=== PATIENT | male | born 1960 | race American Indian/Alaskan Native ===

== ENCOUNTER 2018-06-22 13:46 | Inpatient (IN) | payer MEDICAID, OTHER ==
[2018-06-22 13:46] VITALS: BMI 31.1
[2018-06-22 15:58] LABS: BASO # 0.1 K/uL (0.0-0.2); BASO % 0.8 % (0.0-2.0); EOS % 0.1 % (0.0-4.0); LYMPH # 2.4 K/uL (1.0-4.3); LYMPH % 12.2 % (20.0-40.0); MEAN CORPUSCULAR HEMOGLOBIN 29.8 pg (27.0-31.0); MEAN CORPUSCULAR HGB CONC 32.7 g/dL (33.0-37.0); MEAN PLATELET VOLUME 7.7 fL (7.2-11.7); MONO # 1.1 K/uL (0.0-0.8); MONO % 5.5 % (0.0-10.0); NEUT # 15.9 K/uL (1.8-7.0); NEUT % 81.4 % (50.0-75.0); RBC 5.59 Mil/uL (4.40-5.90); RED CELL DISTRIBUTION WIDTH 13.9 % (11.5-14.5)
[2018-06-22 16:01] LABS: HEMOGLOBIN 16.6 g/dL (12.0-18.0); WHITE BLOOD COUNT 19.5 K/uL (4.8-10.8)
[2018-06-22 16:02] LABS: SQUAMOUS EPITHIAL 2 /hpf (0-5); URINE BILIRUBIN NEGATIVE (NEGATIVE); URINE BLOOD 2+ (NEGATIVE); URINE CLARITY Hazy (Clear); URINE COLOR Yellow (YELLOW); URINE GLUCOSE (UA) NORMAL (Normal); URINE LEUKOCYTE ESTERASE NEG Leu/uL (Negative); URINE PROTEIN 2+ mg/dL (NEGATIVE); URINE UROBILINOGEN NORMAL mg/dL (0.2-1.0)
[2018-06-22 16:04] LABS: ALB/GLOB RATIO 1.4 (1.0-2.1); ALBUMIN 5.2 g/dL (3.5-5.0); AST/SGOT 34 U/L (17-59); BLOOD UREA NITROGEN 64 mg/dL (9-20); CALCIUM 8.6 mg/dl (8.6-10.4); GFR NON-AFRICAN AMERICAN 8
[2018-06-22 16:09] LABS: ALT/SGPT < 6 U/L (21-72)
[2018-06-22 16:17] LABS: BARBITURATES, UR NEGATIVE (NEGATIVE); BENZODIAZEPINES, UR NEGATIVE (NEGATIVE); OPIATES, UR POSITIVE (NEGATIVE); PHENCYCLIDINE, UR NEGATIVE (NEGATIVE)
--- NOTE | 2018-06-22 16:19 | C.PDOC ---
History Of Present Illness 57 year old male presents to ED requesting pre-screen for heroin detox. Patient states that he last used yesterday. He states that he uses 4-5 bags daily and intranasally. He states that he uses 2 bags 3 hours ago. Patient denies wit hdrawal symptoms. Time Seen by Provider: 06/22/18 15:07 Chief Complaint (Nursing): Substance Abuse History Per: Patient History/Exam Limitations: no limitations Onset/Duration Of Symptoms: Hrs Modifying Factor(s): Other (heroin) Associated Symptoms: denies: Other (withdrawl symptoms) Past Medical History Reviewed: Historical Data, Nursing Documentation, Vital Signs Vital Signs: Last Vital Signs Temp 98 F 06/22/18 13:54 Pulse 95 H 06/22/18 13:54 Resp 18 06/22/18 13:54 BP 164/110 H 06/22/18 13:54 Pulse Ox 100 06/22/18 13:54 - Medical History PMH: Anxiety, Deep Vein Thrombosis Denies: Diabetes, Hepatitis, HIV, HTN, Chronic Kidney Disease, Seizures, Sexually Transmitted Disease Surgical History: No Surg Hx - [facility] Procedures DETOXIFICATION SERVICES FOR SUBSTANCE ABUSE TREATMENT (04/16/16) INJECT/INFUSE ELECTROLYT (06/21/13) INJECT/INFUSE NEC (06/21/13) Family History: States: Unknown Family Hx - Social History Hx Tobacco Use: Yes (heavy smoker) Hx Alcohol Use: Yes (social) Hx Substance Use: Yes (heroin) - Immunization History Hx Tetanus Toxoid Vaccination: No Hx Influenza Vaccination: No Hx Pneumococcal Vaccination: No Review Of Systems Constitutional: Negative for: Fever, Chills, Weakness Cardiovascular: Negative for: Chest Pain, Palpitations Respiratory: Negative for: Cough, Shortness of Breath Gastrointestinal: Negative for: Nausea, Vomiting, Abdominal Pain Neurological: Negative for: Weakness, Numbness, Dizziness Psych: Negative for: Withdrawal Physical Exam - Physical Exam Appears: Well, Non-toxic, No Acute Distress, Other (pleasant) Skin: Normal Color, Warm, Dry Head: Atraumatic, Normacephalic Eye(s): bilateral: Other (pinpoint pupils) Oral Mucosa: Moist Neck: Normal ROM, Supple Chest: Symmetrical, No Deformity Respiratory: No Accessory Muscle Use Gastrointestinal/Abdominal: Soft, No Tenderness Extremity: Capillary Refill (< 2 seconds) Extremity: Bilateral: Atraumatic, Normal Color And Temperature Neurological/Psych: Oriented x3, Normal Speech, Normal Cognition ED Course And Treatment - Laboratory Results Result Diagrams: 06/22/18 17:56 06/22/18 18:41 Lab Results: Total Bilirubin 0.4 mg/dL (0.2-1.3) 06/22/18 15:43 AST 34 U/L (17-59) 06/22/18 15:43 ALT < 6 U/L (21-72) L D 06/22/18 15:43 Alkaline Phosphatase 98 U/L (38-126) 06/22/18 15:43 Total Protein 9.0 g/dL (6.3-8.3) H 06/22/18 15:43 Albumin 5.2 g/dL (3.5-5.0) H 06/22/18 15:43 Globulin 3.8 gm/dL (2.2-3.9) 06/22/18 15:43 Albumin/Globulin Ratio 1.4 (1.0-2.1) 06/22/18 15:43 Urine Color Yellow (YELLOW) 06/22/18 15:43 Urine Clarity Hazy (Clear) 06/22/18 15:43 Urine pH 5.0 (5.0-8.0) 06/22/18 15:43 Ur Specific [place] 1.015 (1.003-1.030) 06/22/18 15:43 Urine Protein 2+ mg/dL (NEGATIVE) H 06/22/18 15:43 Urine Glucose (UA) Normal mg/dL (Normal) 06/22/18 15:43 Urine Ketones Negative mg/dL (NEGATIVE) 06/22/18 15:43 Urine Blood 2+ (NEGATIVE) H 06/22/18 15:43 Urine Nitrate Negative (NEGATIVE) 06/22/18 15:43 Urine Bilirubin Negative (NEGATIVE) 06/22/18 15:43 Urine Urobilinogen Normal mg/dL (0.2-1.0) 06/22/18 15:43 Ur Leukocyte Esterase Neg Donna/uL (Negative) 06/22/18 15:43 Urine WBC (Auto) 3 /hpf (0-5) 06/22/18 15:43 Urine RBC (Auto) 16 /hpf (0-3) H 06/22/18 15:43 Ur Squamous Epith Cells 2 /hpf (0-5) 06/22/18 15:43 Hyaline Casts 11-20 /lpf (0-2) H 06/22/18 15:43 ECG: Interpreted By Me ECG Rhythm: Sinus Rhythm ECG Interpretation: Normal Rate From EC O2 Sat by Pulse Oximetry: 100 (RA) Pulse Ox Interpretation: Normal - Radiology CXR: Interpreted by Me CXR Interpretation: Yes: No Acute Disease Progress Note: Labs ordered with UA and drug screen for patient. Reevaluation Time: 16:19 Reassessment Condition: Unchanged Medical Decision Making Medical Decision Makin: leukocytosis prob related to cocaine BUN 64/7.2 vastly abnormal c/p prior hydration started and repeat CBC/CMP repeat labs creat 6.7, slightly improved. 1930: d/w Dr. Berger, Medicine Awake Overnight Monitor- ok to admit recommends Nephrology Consult, Dr. Salter Awake Overnight Monitor agressive hydration continued, presume pre-renal vs heroine induced nephropathy Disposition Doctor Will See Patient In The: Hospital Counseled Patient/Family Regarding: Studies Performed, Diagnosis - Disposition Disposition: HOSPITALIZED Disposition Time: 19:15 Condition: GOOD - Clinical Impression Clinical Impression: Drug abuse, Acute renal insufficiency - Scribe Statement The provider has reviewed the documentation as recorded by the Scribe (Carito Gongora) All medical record entries made by the Scribe were at my direction and p ersonally dictated by me. I have reviewed the chart and agree that the record accurately reflects my personal performance of the history, physical exam, medical decision making, and the department course for this patient. I have also personally directed, reviewed, and agree with the discharge instructions and disposition.
--- NOTE | 2018-06-22 16:20 | C.PDOC ---
Time Seen by Provider: 06/22/18 15:07 Chief Complaint (Nursing): Substance Abuse Past Medical History Vital Signs: Last Vital Signs Temp 98 F 06/22/18 13:54 Pulse 95 H 06/22/18 13:54 Resp 18 06/22/18 13:54 BP 164/110 H 06/22/18 13:54 Pulse Ox 100 06/22/18 13:54 - Medical History PMH: Anxiety, Deep Vein Thrombosis Denies: Diabetes, Hepatitis, HIV, HTN, Chronic Kidney Disease, Seizures, Sexually Transmitted Disease - [facility] Procedures DETOXIFICATION SERVICES FOR SUBSTANCE ABUSE TREATMENT (04/16/16) INJECT/INFUSE ELECTROLYT (06/21/13) INJECT/INFUSE NEC (06/21/13) - Social History Hx Tobacco Use: Yes (heavy smoker) Hx Alcohol Use: Yes (social) Hx Substance Use: Yes (heroin) - Immunization History Hx Tetanus Toxoid Vaccination: No Hx Influenza Vaccination: No Hx Pneumococcal Vaccination: No ED Course And Treatment - Laboratory Results Result Diagrams: 06/22/18 17:56 06/22/18 18:41 Lab Results: Total Bilirubin 0.4 mg/dL (0.2-1.3) 06/22/18 15:43 AST 34 U/L (17-59) 06/22/18 15:43 ALT < 6 U/L (21-72) L D 06/22/18 15:43 Alkaline Phosphatase 98 U/L (38-126) 06/22/18 15:43 Total Protein 9.0 g/dL (6.3-8.3) H 06/22/18 15:43 Albumin 5.2 g/dL (3.5-5.0) H 06/22/18 15:43 Globulin 3.8 gm/dL (2.2-3.9) 06/22/18 15:43 Albumin/Globulin Ratio 1.4 (1.0-2.1) 06/22/18 15:43 Urine Color Yellow (YELLOW) 06/22/18 15:43 Urine Clarity Hazy (Clear) 06/22/18 15:43 Urine pH 5.0 (5.0-8.0) 06/22/18 15:43 Ur Specific [place] 1.015 (1.003-1.030) 06/22/18 15:43 Urine Protein 2+ mg/dL (NEGATIVE) H 06/22/18 15:43 Urine Glucose (UA) Normal mg/dL (Normal) 06/22/18 15:43 Urine Ketones Negative mg/dL (NEGATIVE) 06/22/18 15:43 Urine Blood 2+ (NEGATIVE) H 06/22/18 15:43 Urine Nitrate Negative (NEGATIVE) 06/22/18 15:43 Urine Bilirubin Negative (NEGATIVE) 06/22/18 15:43 Urine Urobilinogen Normal mg/dL (0.2-1.0) 06/22/18 15:43 Ur Leukocyte Esterase Neg Donna/uL (Negative) 06/22/18 15:43 Urine WBC (Auto) 3 /hpf (0-5) 06/22/18 15:43 Urine RBC (Auto) 16 /hpf (0-3) H 06/22/18 15:43 Ur Squamous Epith Cells 2 /hpf (0-5) 06/22/18 15:43 Hyaline Casts 11-20 /lpf (0-2) H 06/22/18 15:43 Lab Interpretation: Abnormal (tox + opiates/cocaine) O2 Sat by Pulse Oximetry: 100 Reevaluation Time: 16:19 Reassessment Condition: Unchanged Medical Decision Making Medical Decision Makin: leukocytosis prob related to cocaine BUN 64/7.2 vastly abnormal c/p prior hydration started and repeat CBC/CMP repeat labs creat 6.7, slightly improved. 1930: d/w Dr. Berger, Medicine Sr[employer]- ok to admit recommends Nephrology Consult, Dr. Salter Sr[employer] agressive hydration continued, presume pre-renal vs heroine induced nephropathy Disposition Doctor Will See Patient In The: Hospital Counseled Patient/Family Regarding: Studies Performed, Diagnosis - Disposition Disposition: HOSPITALIZED Disposition Time: 19:41 Condition: GOOD - Clinical Impression Clinical Impression: Drug abuse, Acute renal insufficiency
[2018-06-22 18:00] LABS: BASO # 0.1 K/uL (0.0-0.2); BASO % 0.7 % (0.0-2.0); MONO # 1.6 K/uL (0.0-0.8); NEUT % 80.4 % (50.0-75.0)
[2018-06-22 18:11] LABS: EOS % 0.1 % (0.0-4.0); HEMOGLOBIN 16.8 g/dL (12.0-18.0); LYMPH # 2.2 K/uL (1.0-4.3); LYMPH % 10.9 % (20.0-40.0); MEAN CELL VOLUME 90.2 fL (80.0-94.0); MEAN CORPUSCULAR HEMOGLOBIN 30.1 pg (27.0-31.0); MEAN CORPUSCULAR HGB CONC 33.3 g/dL (33.0-37.0); MEAN PLATELET VOLUME 7.6 fL (7.2-11.7); MONO % 7.9 % (0.0-10.0); NEUT # 16.4 K/uL (1.8-7.0); RBC 5.58 Mil/uL (4.40-5.90); RED CELL DISTRIBUTION WIDTH 13.9 % (11.5-14.5); WHITE BLOOD COUNT 20.4 K/uL (4.8-10.8)
[2018-06-22 19:10] LABS: ALB/GLOB RATIO 1.4 (1.0-2.1); ALBUMIN 5.2 g/dL (3.5-5.0); CALCIUM 8.8 mg/dl (8.6-10.4)
[2018-06-22] MEDS ORDERED: Sodium Chloride 0.9% 1,000 ML IV ONE ×2 (19:17)
[2018-06-22 19:21] LABS: CK-MB 6.34 ng/mL (0.0-3.38); TROPONIN I 0.098 ng/mL (0.00-0.120)
[2018-06-22] MEDS ORDERED: Sodium Chloride 0.9% 2,000 ML ONE (19:33)
[2018-06-22 20:30] VITALS: RESP 20
--- NOTE | 2018-06-23 08:28 | RAD ---
Date of service: 06/22/2018 HISTORY: adm COMPARISON: No prior. FINDINGS: LUNGS: The lungs are well inflated and clear. PLEURA: No pleural effusions or pneumothorax. CARDIOVASCULAR: The heart is normal in size. No aortic atherosclerotic calcifications present. OSSEOUS STRUCTURES: Within normal limits for the patient's age. VISUALIZED UPPER ABDOMEN: Normal. OTHER FINDINGS: None. IMPRESSION: No active pulmonary disease.
--- NOTE | 2018-06-23 11:27 | CP.PCM.CON ---
History of Present Illness - History of Present Illness History of Present Illness: dict. ATN r/o Rhabdo. hyperphosphatemia IV fluid monitoring binders see orders Past Patient History - Past Medical History & Family History Past Medical History?: Yes - Past Social History Smoking Status: Light Smoker < 10 Cigarettes Daily - CARDIAC Hx Hypertension: No - PULMONARY Hx Respiratory Disorders: No Hx Tuberculosis: No - NEUROLOGICAL Hx Seizures: No - HEENT Hx HEENT Problems: No - RENAL Hx Chronic Kidney Disease: No - ENDOCRINE/METABOLIC Hx Endocrine Disorders: No - HEMATOLOGICAL/ONCOLOGICAL Hx Human Immunodeficiency Virus (HIV): No - INTEGUMENTARY Hx Dermatological Problems: No - MUSCULOSKELETAL/RHEUMATOLOGICAL Hx Falls: No - GASTROINTESTINAL Hx Gastrointestinal Disorders: No - GENITOURINARY/GYNECOLOGICAL Hx Sexually Transmitted Disorders: No - PSYCHIATRIC Hx Anxiety: Yes Hx Substance Use: Yes (heroin) - SURGICAL HISTORY Hx Surgeries: Yes Hx Herniorrhaphy: Yes (x3) Hx Vascular Surgery: Yes (stents in leg R) Other/Comment: leg stents - ANESTHESIA Hx Anesthesia: Yes Hx Anesthesia Reactions: No Meds Allergies/Adverse Reactions: Allergies Allergy/AdvReac Type Severity Reaction Status Date / Time No Known Allergies Allergy Verified 06/21/13 17:40 - Medications Medications: Current Medications Amlodipine Besylate (Norvasc) 5 mg PO DAILY [facility] Heparin Sodium (Porcine) (Heparin) 5,000 units SC Q12 [facility] Last Admin: 06/23/18 10:30 Dose: 5,000 units Dextrose/Sodium Chloride (Dextrose 5%/0.9% Ns 1000 Ml) 1,000 mls @ 125 mls/hr IV .Q8H ONE Stop: 06/23/18 19:12 Influenza Virus Vaccine (Flucelvax Quad [id number] Syr) 60 mcg IM .ONCE ONE Stop: 06/24/18 14:01 Pneumococcal Polyvalent Vaccine (Pneumovax 23 Vaccine) 0.5 ml IM .ONCE ONE Stop: 06/24/18 10:01 Results - Vital Signs Recent Vital Signs: Last Vital Signs Temp 98.1 F 06/23/18 07:00 Pulse 63 06/23/18 07:00 Resp 20 06/23/18 07:00 BP 159/84 H 06/23/18 07:00 Pulse Ox 98 06/23/18 07:00 - Labs Result Diagrams: 06/22/18 17:56 02/11/19 18:41 Labs: Laboratory Results - last 24 hr 06/22/18 06/22/18 06/22/18 15:43 15:43 15:43 WBC 19.5 H D RBC 5.59 Hgb 16.6 D Hct 50.9 MCV 91.0 MCH 29.8 MCHC 32.7 L RDW 13.9 Plt Count 692 H D MPV 7.7 Neut % (Auto) 81.4 H Lymph % (Auto) 12.2 L Clay % (Auto) 5.5 Eos % (Auto) 0.1 Baso % (Auto) 0.8 Neut # (Auto) 15.9 H Lymph # (Auto) 2.4 Clay # (Auto) 1.1 H Eos # (Auto) 0.0 Baso # (Auto) 0.1 Sodium 132 Potassium 3.8 Chloride 88 L Carbon Dioxide 22 Anion Gap 25 H BUN 64 H Creatinine 7.2 H Est GFR ( Amer) 9 Est GFR (Non-Af Amer) 8 Random Glucose 114 H D Calcium 8.6 Phosphorus 6.9 H Magnesium 1.9 Total Bilirubin 0.4 AST 34 ALT < 6 L D Alkaline Phosphatase 98 Total Creatine Kinase CK-MB (Mass) Troponin I Total Protein 9.0 H Albumin 5.2 H Globulin 3.8 Albumin/Globulin Ratio 1.4 Urine Color Yellow Urine Clarity Hazy Urine pH 5.0 Ur Specific [place] 1.015 Urine Protein 2+ H Urine Glucose (UA) Normal Urine Ketones Negative Urine Blood 2+ H Urine Nitrate Negative Urine Bilirubin Negative Urine Urobilinogen Normal Ur Leukocyte Esterase Neg Urine WBC (Auto) 3 Urine RBC (Auto) 16 H Ur Squamous Epith Cells 2 Hyaline Casts 11-20 H Urine Opiates Screen Urine Methadone Screen Ur Barbiturates Screen Ur Phencyclidine Scrn Ur Amphetamines Screen U Benzodiazepines Scrn U Oth Cocaine Metabols U Cannabinoids Screen Alcohol, Quantitative < 10 06/22/18 06/22/18 06/22/18 15:43 15:43 17:56 WBC 20.4 H RBC 5.58 Hgb 16.8 Hct 50.4 MCV 90.2 MCH 30.1 MCHC 33.3 RDW 13.9 Plt Count 647 H MPV 7.6 Neut % (Auto) 80.4 H Lymph % (Auto) 10.9 L Clay % (Auto) 7.9 Eos % (Auto) 0.1 Baso % (Auto) 0.7 Neut # (Auto) 16.4 H Lymph # (Auto) 2.2 Clay # (Auto) 1.6 H Eos # (Auto) 0.0 Baso # (Auto) 0.1 Sodium Potassium Chloride Carbon Dioxide Anion Gap BUN Creatinine Est GFR ( Amer) Est GFR (Non-Af Amer) Random Glucose Calcium Phosphorus Magnesium Total Bilirubin AST ALT Alkaline Phosphatase Total Creatine Kinase CK-MB (Mass) Troponin I 0.1190 Total Protein Albumin Globulin Albumin/Globulin Ratio Urine Color Urine Clarity Urine pH Ur Specific [place] Urine Protein Urine Glucose (UA) Urine Ketones Urine Blood Urine Nitrate Urine Bilirubin Urine Urobilinogen Ur Leukocyte Esterase Urine WBC (Auto) Urine RBC (Auto) Ur Squamous Epith Cells Hyaline Casts Urine Opiates Screen Positive H Urine Methadone Screen Negative Ur Barbiturates Screen Negative Ur Phencyclidine Scrn Negative Ur Amphetamines Screen Negative U Benzodiazepines Scrn Negative U Oth Cocaine Metabols Positive H U Cannabinoids Screen Negative Alcohol, Quantitative 06/22/18 18:41 WBC RBC Hgb Hct MCV MCH MCHC RDW Plt Count MPV Neut % (Auto) Lymph % (Auto) Clay % (Auto) Eos % (Auto) Baso % (Auto) Neut # (Auto) Lymph # (Auto) Clay # (Auto) Eos # (Auto) Baso # (Auto) Sodium 131 L Potassium 4.3 Chloride 89 L Carbon Dioxide 21 L Anion Gap 26 H BUN 66 H Creatinine 6.7 H Est GFR ( Amer) 10 Est GFR (Non-Af Amer) 9 Random Glucose 110 Calcium 8.8 Phosphorus Magnesium Total Bilirubin 0.4 AST 35 ALT 13 L D Alkaline Phosphatase 106 Total Creatine Kinase 821 H CK-MB (Mass) 6.34 H Troponin I 0.0980 Total Protein 9.1 H Albumin 5.2 H Globulin 3.9 Albumin/Globulin Ratio 1.4 Urine Color Urine Clarity Urine pH Ur Specific [place] Urine Protein Urine Glucose (UA) Urine Ketones Urine Blood Urine Nitrate Urine Bilirubin Urine Urobilinogen Ur Leukocyte Esterase Urine WBC (Auto) Urine RBC (Auto) Ur Squamous Epith Cells Hyaline Casts Urine Opiates Screen Urine Methadone Screen Ur Barbiturates Screen Ur Phencyclidine Scrn Ur Amphetamines Screen U Benzodiazepines Scrn U Oth Cocaine Metabols U Cannabinoids Screen Alcohol, Quantitative
[2018-06-23] MEDS ORDERED: Dextrose 5%/0.9% NS 1,000 ML IV ONE (11:45)
[2018-06-23 14:50] LABS: OSMOLALITY,URINE 524 mosm/kg (300-1000)
[2018-06-23] MEDS: Sodium Chloride 0.9% 1,000 ML IV SCH (20:00)
--- NOTE | 2018-06-24 02:17 | HP ---
The patient is a 57-year-old male. The patient was seen and examined at the bedside on 06/23/2018. CHIEF COMPLAINT: Substance abuse. HISTORY OF PRESENT ILLNESS: Mr. Franco Thacker is a 57-year-old male came to the emergency room, requesting heroin detoxification. The patient states that he last used heroin was yesterday. He states that he uses 4 to 5 bags per day intranasally. He states that he uses two bags three hours ago before he has to come in the hospital. Denies withdrawals at that moment. No hematuria or hematochezia. No headache. No dizziness. No chest pain. No palpitation. We admitted the patient and called psych consult. PAST MEDICAL HISTORY: Anxiety and deep vein thrombosis. FAMILY HISTORY: Unknown. SOCIAL HISTORY: Tobacco, heavy user. Alcohol, socially. Substance abuse, heroin. REVIEW OF SYSTEMS: The patient was seen and examined at bedside. Looking comfortable. No fever. No chills. No hematuria or hematochezia. No headache or dizziness. No chest pain. No palpitation. PHYSICAL EXAMINATION: VITAL SIGNS: Temperature 98.2, pulse 69, blood pressure 152/84, and respiratory rate 20. HEENT: Head, normocephalic, atraumatic. Eyes, PERRLA. Extraocular muscles intact. Conjunctivae clear. Nose patent. Mucous membranes moist. NECK: Supple. No carotid bruit. No JVD or thyromegaly. CHEST: Bilaterally symmetrical. HEART: S1 and S2 positive. LUNGS: Clear to auscultation. ABDOMEN: Soft. Bowel sounds present. No organomegaly. EXTREMITIES: No edema. No cyanosis. NEUROLOGICAL: The patient is awake and alert. Moving all four extremities. No focal deficit. LABORATORY DATA: White blood cells 25.4, hemoglobin 16.8, hematocrit 50.4, platelets 647. Sodium 131, potassium 4.3, BUN 56, creatinine 6.7. On admission, it was 7.2. AST 30. ASSESSMENT AND PLAN: Mr. Franco Thacker is a 57-year-old male with leukocytosis, thrombocytosis, hyponatremia, hypochloremia, renal insufficiency, abnormal liver function test, proteinuria, hematuria, drug screen positive for opiates and cocaine, and history of heavy smoking. We will start on nicotine patch. Seen by Dr. Raz Salter, aba tutor. rhabdomyolysis, hyperphosphatemia. Continue intravenous fluid. Continue binders. Hypertension. Start Norvasc for blood pressure and heparin for deep venous thrombosis prophylaxis. Getting dextrose. Pneumovax is given. Gastrointestinal prophylaxis given. Chest x-ray noted. Waiting for psychiatrist's input. Repeat laboratories. We will follow up. Aide Berger MD MTDD
[2018-06-24] MEDS: Sodium Chloride 0.9% 1,000 ML IV SCH ×3 (07:00→16:00)
[2018-06-24 07:14] LABS: HEMOGLOBIN 16.3 g/dL (12.0-18.0); MEAN CELL VOLUME 91.7 fL (80.0-94.0); MEAN CORPUSCULAR HEMOGLOBIN 30.6 pg (27.0-31.0); MEAN CORPUSCULAR HGB CONC 33.4 g/dL (33.0-37.0); MEAN PLATELET VOLUME 8.5 fL (7.2-11.7); RBC 5.32 Mil/uL (4.40-5.90); RED CELL DISTRIBUTION WIDTH 13.3 % (11.5-14.5)
[2018-06-24 07:44] LABS: WHITE BLOOD COUNT 9.9 K/uL (4.8-10.8)
[2018-06-24] MEDS ORDERED: Pneumococcal 23-Valent Vaccine IM ONE (10:00)
--- NOTE | 2018-06-24 10:14 | PCM.PSYCH ---
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 Patient states that he has 8 children who are all adults. He presented yesterday for heroin detox to the ED but was admitted to a medical floor for acute renal insufficiency. Patient has a long history of heroin and cocaine abuse. He admits to using 4-5 bags of heroin, intranasally, daily. He has been using heroin since he was 36 years old. Patient does not have a history of heroin overdoses. Patient also smokes 4-5 bags of cocaine, daily, and has been using it since age 25. He has been to detox 3 times before, with once before at [facility]. He denies any feelings of depression, hopelessness, helplessness, or worthlessness. Patient denies any suicidal or homicidal ideation, auditory or visual hallucinations, and paranoia. Patient states that he smokes 10 cigarettes a day but denies using any other substances. PMHx: DVT Meds: amlodipine 10 mg PO daily and heparin 5,000 units Current Medications: Active Medications Generic Name Dose Route Start Last Admin Trade Name Anthonyq PRN Reason Stop Dose Admin Amlodipine Besylate 10 mg 06/24/18 10:00 06/24/18 09:18 Norvasc PO 10 mg DAILY [facility] Administration Calcium Acetate 667 mg 06/23/18 17:00 06/24/18 09:00 Phoslo PO 667 mg BIDCC [facility] Administration Famotidine 20 mg 06/24/18 10:00 06/24/18 09:17 Pepcid PO 20 mg DAILY [facility] Administration Heparin Sodium (Porcine) 5,000 units 06/23/18 10:00 06/24/18 09:18 Heparin SC 5,000 units Q12 [facility] Administration Sodium Chloride 1,000 mls @ 100 mls/hr 06/23/18 20:00 06/23/18 20:00 Sodium Chloride 0.9% IV 100 mls/hr .Q10H [facility] Administration Influenza Virus Vaccine 60 mcg 06/24/18 14:00 Flucelvax Quad [id number] Syr IM 06/24/18 14:01 .ONCE ONE Lisinopril 10 mg 06/24/18 10:00 Zestril PO DAILY [facility] Lorazepam 0.25 mg 06/23/18 20:16 Ativan IVP Q6H PRN Anxiety Nicotine 1 patch 06/24/18 10:00 06/24/18 09:20 Nicoderm Cq TD 1 patch DAILY [facility] Administration Ondansetron HCl 4 mg 06/24/18 12:00 Zofran Inj IVP Q6 [facility] Past Psychiatric History - Past Psychiatric History Previous Treatment History: None Pertinent Medical Hx (Current Medical&Sleep Prob, Allergies): Allergies Allergy/AdvReac Type Severity Reaction Status Date / Time No Known Allergies Allergy Verified 06/21/13 17:40 Aspirin [Ecotrin] 81 mg PO DAILY #30 tabec 04/19/16 traZODone [Desyrel] 50 mg PO HS PRN #30 tab 04/19/16 Clopidogrel [Plavix] 75 mg PO DAILY 06/23/18 amLODIPine [Norvasc] 5 mg PO DAILY 06/23/18 hydrALAZINE [Apresoline] 50 mg PO DAILY 06/23/18 Review of Systems - Review of Systems All systems: reviewed and no additional remarkable complaints except - Psychiatric Psychiatric: Anxiety, Irritability. absent: Suicidal Ideation Mental Status Examination - Personal Presentation Personal Presentation: Looks stated age - Affect Affect: Constricted - Motor Activity Motor Activity: Calm - Reliability in Providing Information Reliability in Providing Information: Good - Speech Speech: Organized - Formal Thought Process Formal Thought Process: No Impairment - Obsessions/Compulsions Obsessions: No Compulsions: No - Cognitive Functions Orientation: Person, Place, Situation, Time Sensorium: Alert Attention/Concentration: Attentive Abstract Thinking: [place] Estimate of Intelligence: Below average Judgement: Imparied, as evidence by: Poor judgement, Intact, as evidence by: Insight regarding need for hospitalization - Risk Risk: Withdrawal, Diminished functioning - Limitations Limitations: Living alone DSM 5 DX - DSM 5 DSM 5 Diagnosis: Opioid use disorder severe Opioid withdrawal Cocaine use Disorder moderate - Recommended/Plan of Treatment Treatment Recommendations and Plan of Treatment: Psychoeducation Supportive therapy Methadone taper Patient is psychiatrically cleared
[2018-06-24 12:13] LABS: IRON 170 ug/dL (49-181)
[2018-06-24 12:19] LABS: LDL CHOLESTEROL 97 mg/dL (0-129)
[2018-06-24 12:25] LABS: % IRON SATURATION 52 (20-55); TOTAL IRON BINDING CAPACITY 324 ug/dL (250-450)
[2018-06-24 12:27] LABS: BLOOD UREA NITROGEN 23 mg/dL (9-20); CALCIUM 8.5 mg/dl (8.6-10.4); GFR NON-AFRICAN AMERICAN > 60; HDL CHOLESTEROL 41 mg/dL (30-70)
--- NOTE | 2018-06-24 13:06 | CP.PCM.PN ---
Subjective - Date & Time of Evaluation Date of Evaluation: 06/24/18 Time of Evaluation: 13:03 - Subjective Subjective: Patient is awake and conscious Vital signs stable No nausea no vomiting appetite is normal Urine output reported to be good Objective - Vital Signs/Intake and Output Vital Signs (last 24 hours): Temp Pulse Resp BP Pulse Ox 98.4 F 73 20 173/96 H 96 06/24/18 08:00 06/24/18 08:00 06/24/18 08:00 06/24/18 08:00 06/24/18 08:00 Intake and Output: 06/24/18 06/24/18 06:59 18:59 Intake Total 1000 Balance 1000 - Medications Medications: Current Medications Amlodipine Besylate (Norvasc) 10 mg PO DAILY [facility] Last Admin: 06/24/18 09:18 Dose: 10 mg Calcium Acetate (Phoslo) 667 mg PO BIDCC [facility] Last Admin: 06/24/18 09:00 Dose: 667 mg Famotidine (Pepcid) 20 mg PO DAILY [facility] Last Admin: 06/24/18 09:17 Dose: 20 mg Heparin Sodium (Porcine) (Heparin) 5,000 units SC Q12 [facility] Last Admin: 06/24/18 09:18 Dose: 5,000 units Sodium Chloride (Sodium Chloride 0.9%) 1,000 mls @ 100 mls/hr IV .Q10H [facility] Last Admin: 06/24/18 11:37 Dose: 100 mls/hr Influenza Virus Vaccine (Flucelvax Quad [id number] Syr) 60 mcg IM .ONCE ONE Stop: 06/24/18 14:01 Lisinopril (Zestril) 10 mg PO DAILY [facility] Last Admin: 06/24/18 11:00 Dose: 10 mg Lorazepam (Ativan) 0.25 mg IVP Q6H PRN PRN Reason: Anxiety Nicotine (Nicoderm Cq) 1 patch TD DAILY [facility] Last Admin: 06/24/18 09:20 Dose: 1 patch Ondansetron HCl (Zofran Inj) 4 mg IVP Q6 PRN PRN Reason: Nausea/Vomiting - Labs Labs: 06/24/18 07:02 06/24/18 11:41 - Constitutional Appears: No Acute Distress - Eye Exam Eye Exam: absent: Conjunctival injection - ENT Exam ENT Exam: Mucous Membranes Moist - Neck Exam Neck Exam: absent: Lymphadenopathy - Respiratory Exam Respiratory Exam: NORMAL BREATHING PATTERN. absent: Chest Wall Tenderness - Cardiovascular Exam Cardiovascular Exam: absent: Gallop, JVD, Rubs - GI/Abdominal Exam GI & Abdominal Exam: Soft, Normal Bowel Sounds - Extremities Exam Extremities Exam: absent: Calf Tenderness - Back Exam Back Exam: absent: CVA tenderness (L), CVA tenderness (R) - Neurological Exam Neurological Exam: Alert - Psychiatric Exam Psychiatric exam: Normal Affect - Skin Skin Exam: absent: Cyanosis Assessment and Plan (1) GUY (acute kidney injury) Assessment & Plan: Acute kidney injury probably secondary to rhabdomyolysis and from drug overdose perhaps Opioid dependent Hypertension Hyperphosphatemia Hyponatremia Recommendation Patient appears to be recovering from acute kidney injury serum creatinine coming down Electrolyte normalizing almost serum sodium about to be corrected Follow-up hyperphosphatemia repeat PT serum phosphorus for tomorrow probably will be corrected , discontinue IV fluid by this afternoon Follow-up BMP for tomorrow Serum CPK coming down to near normal Myoglobin in the urine still pending and serum uric acid normal Status: Acute (2) History of DVT of lower extremity Status: Acute (3) Opiate dependence Status: Acute
[2018-06-24 13:14] LABS: FOLATE 8.6 ng/mL
--- NOTE | 2018-06-24 13:30 | CON ---
DATE: 06/23/2018 LOCATION: The patient is in [facility], room 351, bed A. HISTORY OF PRESENT ILLNESS: This patient who is a 57-year-old male I was called to see in for abnormal kidney function. This gentleman who has been taking what appeared to be some opioid. He stated that he took four to five bags, and the last dose as he took it probably yesterday noon or so way before he came to the emergency room from yesterday. The ER noted that his BUN and creatinine have been elevated. The patient stated he took this bag nasally. He has a previous history of drug and kidney problem in the past as he stated. No history of hypertension as far as we can tell. PAST MEDICAL HISTORY: Significant for deep vein thrombosis on the right side. Denied HIV or chronic kidney disease, seizures. SOCIAL HISTORY: Noncontributory except what I mentioned above. REVIEW OF SYSTEMS: Review of 14 systems as we mentioned above, the rest of it unremarkable. PHYSICAL EXAMINATION: GENERAL: He is conscious, alert. VITAL SIGNS: Blood pressure 149/87 and 159/84 on different occasion. Normal temperature, pulse 63. NECK: Supple. CHEST: Clear. HEART: No rub. ABDOMEN: Soft. EXTREMITIES: No edema. LABORATORY DATA: Showed WBC 20,400; hemoglobin 16.8. Toxicology positive for opioid screening and cocaine was positive. Urinalysis showed some hyaline casts, 2+ blood, 16 rbc's and 2+ protein. Chemistry: Creatinine 7.2, came down to 6.7; sodium 132, came down to 131 with a potassium 4.3, chloride 89. CPK is 121. IMPRESSION AND PLAN: It appeared that the gentleman has acute kidney injury, rule out rhabdomyolysis probably related to the opioid that he has been taking thus possibility, and my recommendation is that the patient need IV fluid D5 normal saline 125 mL per hour. Spot urine for sodium osmolality, creatinine. Serum uric acid. The patient clinically appeared conscious, awake. No nausea. No vomiting. He looks feeling great and his appetite is normal. Raz Salter MD
[2018-06-24] MEDS ORDERED: Influenza Vaccine 60 mcg/0.5 mL SYR (4YR UP) IM ONE (14:00)
[2018-06-25] MEDS ORDERED: Aluminum Hydroxide/Magnesium Hydroxide Susp (30 mL) PO PRN (00:28)
[2018-06-25] MEDS: Sodium Chloride 0.9% 1,000 ML IV SCH ×3 (03:00→22:03)
--- NOTE | 2018-06-25 10:10 | CP.PCM.PN ---
Subjective - Date & Time of Evaluation Date of Evaluation: 06/25/18 Time of Evaluation: 10:10 - Subjective Subjective: Patient feeling much better Vital signs stable No nausea no vomiting Objective - Vital Signs/Intake and Output Vital Signs (last 24 hours): Temp Pulse Resp BP Pulse Ox 97.4 F L 60 20 144/72 96 06/25/18 08:04 06/25/18 08:04 06/25/18 08:04 06/25/18 08:04 06/25/18 08:04 Intake and Output: 06/25/18 06/25/18 06:59 18:59 Intake Total 800 Balance 800 - Medications Medications: Current Medications Al Hydrox/Mg Hydrox/Simethicone (Maalox 30 Ml) 30 ml PO TID PRN PRN Reason: Indigestion / Heartburn Amlodipine Besylate (Norvasc) 10 mg PO DAILY [facility] Last Admin: 06/24/18 09:18 Dose: 10 mg Calcium Acetate (Phoslo) 667 mg PO BIDCC [facility] Last Admin: 06/25/18 08:35 Dose: 667 mg Clonidine HCl (Catapres) 0.1 mg PO Q4 PRN PRN Reason: COWS Score More or Equal to 5 Famotidine (Pepcid) 20 mg PO DAILY [facility] Last Admin: 06/24/18 09:17 Dose: 20 mg Heparin Sodium (Porcine) (Heparin) 5,000 units SC Q12 [facility] Last Admin: 06/24/18 21:47 Dose: 5,000 units Sodium Chloride (Sodium Chloride 0.9%) 1,000 mls @ 100 mls/hr IV .Q10H [facility] Last Admin: 06/25/18 03:00 Dose: 100 mls/hr Ibuprofen (Motrin Tab) 400 mg PO QID PRN PRN Reason: Pain, moderate (4-7) Last Admin: 06/24/18 22:57 Dose: 400 mg Lisinopril (Zestril) 10 mg PO DAILY [facility] Last Admin: 06/24/18 11:00 Dose: 10 mg Loperamide HCl (Imodium) 2 mg PO Q8 PRN PRN Reason: Diarrhea Lorazepam (Ativan) 0.25 mg IVP Q6H PRN PRN Reason: Anxiety Methadone HCl (Methadone) 15 mg PO Q24H [facility]; Taper Stop: 06/28/18 09:59 Nicotine (Nicoderm Cq) 1 patch TD DAILY [facility] Last Admin: 06/24/18 09:20 Dose: 1 patch Ondansetron HCl (Zofran Inj) 4 mg IVP Q6 PRN PRN Reason: Nausea/Vomiting Ondansetron HCl (Zofran Tab) 4 mg PO Q8 PRN PRN Reason: Nausea/Vomiting Pseudoephedrine HCl (Sudafed Tab) 60 mg PO QID PRN PRN Reason: Nasal/Sinus Congestion - Labs Labs: 06/24/18 07:02 06/24/18 11:41 - Constitutional Appears: No Acute Distress - Eye Exam Eye Exam: Conjunctival injection - ENT Exam ENT Exam: Mucous Membranes Moist - Respiratory Exam Respiratory Exam: NORMAL BREATHING PATTERN. absent: Rales - Cardiovascular Exam Cardiovascular Exam: REGULAR RHYTHM. absent: Gallop, JVD, Rubs - GI/Abdominal Exam GI & Abdominal Exam: Soft, Normal Bowel Sounds - Extremities Exam Extremities Exam: absent: Calf Tenderness - Back Exam Back Exam: absent: CVA tenderness (L), CVA tenderness (R) - Neurological Exam Neurological Exam: Alert - Psychiatric Exam Psychiatric exam: Normal Affect - Skin Skin Exam: absent: Cyanosis Assessment and Plan (1) GUY (acute kidney injury) Assessment & Plan: Acute kidney injury recovering no blood tests from today as of yet Opioid dependent Hypertension Hyperphosphatemia Hyponatremia improving still waiting to repeat BMP Recommendation Patient appears to be recovering from acute kidney injury serum creatinine coming down Electrolyte normalizing almost serum sodium about to be corrected Follow-up hyperphosphatemia repeat serum phosphorus, discontinue IV fluid by this afternoon Follow-up BMP for tomorrow Serum CPK coming down to near normal Myoglobin in the urine still pending and serum uric acid normal Status: Acute (2) History of DVT of lower extremity Status: Acute (3) Opiate dependence Status: Acute
[2018-06-25 14:31] LABS: BLOOD UREA NITROGEN 17 mg/dL (9-20); CALCIUM 8.4 mg/dl (8.6-10.4); GFR NON-AFRICAN AMERICAN > 60
--- NOTE | 2018-06-26 01:55 | PN ---
DATE: 06/25/2018 SUBJECTIVE: The patient is a 57-year-old male. The patient was seen and examined at the bedside on 06/25/2018. Looking comfortable. Feeling much better. No fever. No chills. No hematuria. No hematochezia. No headache. No dizziness. No chest pain. No palpitation. PHYSICAL EXAMINATION: VITAL SIGNS: Reviewed by me: Temperature 97.4, pulse 60, respiratory rate 20, blood pressure 140/70, and pulse oximetry 96%. HEENT: Head: Normocephalic and atraumatic. Eyes: PERRLA. Extraocular muscles intact. Conjunctivae clear. Nose patent. Mucous membranes moist. NECK: Supple. No carotid bruits. No JVD or thyromegaly. CHEST: Bilaterally symmetrical. HEART: S1 and S2 positive. LUNGS: Clear to auscultation. ABDOMEN: Soft. Bowel sounds present. No organomegaly. EXTREMITIES: No edema. No cyanosis. NEUROLOGIC: The patient is awake, alert. Follows simple commands. MEDICATIONS: Maalox, amlodipine, calcium, clonidine, Pepcid, heparin, NS, ibuprofen, Zestril, Imodium, Ativan, methadone, nicotine, Zofran. LABORATORY DATA: We do not have recent labs today, but I reviewed old labs. White blood cells 9.9, hemoglobin 16.2, hematocrit 48.4, platelets 534. Sodium 135, potassium 4, BUN 23, creatinine 1.2, glucose 133. ASSESSMENT AND PLAN: Mr. Franco Thacker is a 57-year-old male with history of deep venous thrombosis of lower extremities, opioid dependency, history of acute kidney injury. The patient is recovering. Serum creatinine is going down. Electrolytes normalizing. Serum sodium was brought to be corrected. Repeat laboratories. 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 Serum creatine phosphokinase coming down to near normal. History of may be rhabdomyolysis. History of hypertension. Gastrointestinal and deep venous thrombosis prophylaxis given. History of diarrhea, anxiety, smoking. Getting nicotine patch. Nauseousness is better. Repeat laboratories. We will follow up. Aide Berger MD
[2018-06-26 07:27] LABS: MEAN CORPUSCULAR HEMOGLOBIN 29.7 pg (27.0-31.0); MEAN CORPUSCULAR HGB CONC 32.3 g/dL (33.0-37.0); RBC 4.45 Mil/uL (4.40-5.90); RED CELL DISTRIBUTION WIDTH 13.5 % (11.5-14.5); WHITE BLOOD COUNT 7.8 K/uL (4.8-10.8)
[2018-06-26 07:30] LABS: HEMOGLOBIN 13.2 g/dL (12.0-18.0)
[2018-06-26 07:41] LABS: BLOOD UREA NITROGEN 27 mg/dL (9-20); CALCIUM 8.3 mg/dl (8.6-10.4); GFR NON-AFRICAN AMERICAN > 60
[2018-06-26] MEDS: Sodium Chloride 0.9% 1,000 ML IV SCH (08:08)
--- NOTE | 2018-06-26 08:23 | CP.PCM.CON ---
History of Present Illness - History of Present Illness History of Present Illness: SURGERY CONSULT NOTE FOR DR. TRUONG Reason: Right inguinal hernia 57M presented to hospital for detox. Patient was positive for opiates and cocaine on admission. Patient had rhabdomyolysis and is recovering from acute kidney injury. Today he has no symptomatic complaints. He states he notices a bulge in his right inguinal region for a couple year that has now recently gotten bigger. He denies any abdominal pain, nausea, vomiting, fevers or chills. He states he eats well and has no trouble moving his bowels. He admits that the bulge gets bigger especially when he valsava. He is requesting repair for the hernia. Never had a colonoscopy before. PMH: IVDA, DVT, Hx of b/l inguinal hernias, HTN PSH: "Venous stents", left inguinal hernia repair *2, right inguinal hernia repair Social: 5cigarrettes daily, denies alcohol use, admits to heroin use, cocaine use, denies other illicit drugs Allergies: NKDA Past Patient History - Past Medical History & Family History Past Medical History?: Yes - Past Social History Smoking Status: Light Smoker < 10 Cigarettes Daily - CARDIAC Hx Hypertension: No - PULMONARY Hx Respiratory Disorders: No Hx Tuberculosis: No - NEUROLOGICAL Hx Seizures: No - HEENT Hx HEENT Problems: No - RENAL Hx Chronic Kidney Disease: No - ENDOCRINE/METABOLIC Hx Endocrine Disorders: No - HEMATOLOGICAL/ONCOLOGICAL Hx Human Immunodeficiency Virus (HIV): No - INTEGUMENTARY Hx Dermatological Problems: No - MUSCULOSKELETAL/RHEUMATOLOGICAL Hx Falls: No - GASTROINTESTINAL Hx Gastrointestinal Disorders: No - GENITOURINARY/GYNECOLOGICAL Hx Sexually Transmitted Disorders: No - PSYCHIATRIC Hx Anxiety: Yes Hx Substance Use: Yes (heroin) - SURGICAL HISTORY Hx Surgeries: Yes Hx Herniorrhaphy: Yes (x3) Hx Vascular Surgery: Yes (stents in leg R) Other/Comment: leg stents - ANESTHESIA Hx Anesthesia: Yes Hx Anesthesia Reactions: No Meds Allergies/Adverse Reactions: Allergies Allergy/AdvReac Type Severity Reaction Status Date / Time No Known Allergies Allergy Verified 06/21/13 17:40 - Medications Medications: Current Medications Al Hydrox/Mg Hydrox/Simethicone (Maalox 30 Ml) 30 ml PO TID PRN PRN Reason: Indigestion / Heartburn Amlodipine Besylate (Norvasc) 10 mg PO DAILY [facility] Last Admin: 06/25/18 10:58 Dose: 10 mg Calcium Acetate (Phoslo) 667 mg PO BIDCC [facility] Last Admin: 06/25/18 17:06 Dose: 667 mg Clonidine HCl (Catapres) 0.1 mg PO Q4 PRN PRN Reason: COWS Score More or Equal to 5 Famotidine (Pepcid) 20 mg PO DAILY [facility] Last Admin: 06/25/18 10:59 Dose: 20 mg Heparin Sodium (Porcine) (Heparin) 5,000 units SC Q12 [facility] Last Admin: 06/25/18 21:29 Dose: 5,000 units Sodium Chloride (Sodium Chloride 0.9%) 1,000 mls @ 100 mls/hr IV .Q10H [facility] Stop: 06/26/18 23:59 Last Admin: 06/26/18 08:08 Dose: Not Given Ibuprofen (Motrin Tab) 400 mg PO QID PRN PRN Reason: Pain, moderate (4-7) Last Admin: 06/25/18 19:16 Dose: 400 mg Lisinopril (Zestril) 10 mg PO DAILY [facility] Last Admin: 06/25/18 10:58 Dose: 10 mg Loperamide HCl (Imodium) 2 mg PO Q8 PRN PRN Reason: Diarrhea Lorazepam (Ativan) 0.25 mg IVP Q6H PRN PRN Reason: Anxiety Methadone HCl (Methadone) 15 mg PO Q24H [facility]; Taper Stop: 06/28/18 09:59 Last Admin: 06/25/18 10:59 Dose: 15 mg Nicotine (Nicoderm Cq) 1 patch TD DAILY [facility] Last Admin: 06/25/18 10:58 Dose: Not Given Ondansetron HCl (Zofran Tab) 4 mg PO Q8 PRN PRN Reason: Nausea/Vomiting Pseudoephedrine HCl (Sudafed Tab) 60 mg PO QID PRN PRN Reason: Nasal/Sinus Congestion Physical Exam - Constitutional Appears: Non-toxic - ENT Exam ENT Exam: Mucous Membranes Moist - Respiratory Exam Respiratory Exam: NORMAL BREATHING PATTERN - Cardiovascular Exam Cardiovascular Exam: REGULAR RHYTHM, +S1, +S2 - GI/Abdominal Exam GI & Abdominal Exam: Hernia (Right inguinal), Soft. absent: Distended, Firm, Guarding, Rebound, Rigid, Tenderness - Extremities Exam Extremities exam: Negative for: pedal edema, tenderness - Neurological Exam Neurological exam: Alert, Oriented x3 - Psychiatric Exam Psychiatric exam: Normal Affect, Normal Mood - Skin Skin Exam: Dry, Intact, Normal Color, Warm Results - Vital Signs Recent Vital Signs: Last Vital Signs Temp 98.1 F 06/26/18 00:00 Pulse 60 06/26/18 00:00 Resp 20 06/26/18 00:00 BP 116/63 06/26/18 00:00 Pulse Ox 97 06/26/18 00:00 - Labs Result Diagrams: 06/26/18 07:06 06/26/18 07:06 Labs: Laboratory Results - last 24 hr 06/23/18 06/25/18 06/26/18 14:22 14:13 07:06 WBC 7.8 RBC 4.45 Hgb 13.2 D Hct 40.9 MCV 92.0 MCH 29.7 MCHC 32.3 L RDW 13.5 Plt Count 544 H MPV 8.0 Sodium 131 L Potassium 4.6 Chloride 97 L Carbon Dioxide 29 Anion Gap 10 BUN 17 Creatinine 1.1 Est GFR ( Amer) > 60 Est GFR (Non-Af Amer) > 60 Random Glucose 71 L D Calcium 8.4 L Phosphorus 2.8 Urine Myoglobin 36 H 06/26/18 07:06 WBC RBC Hgb Hct MCV MCH MCHC RDW Plt Count MPV Sodium 134 Potassium 4.5 Chloride 101 Carbon Dioxide 25 Anion Gap 12 BUN 27 H Creatinine 1.0 Est GFR ( Amer) > 60 Est GFR (Non-Af Amer) > 60 Random Glucose 92 D Calcium 8.3 L Phosphorus Urine Myoglobin Assessment & Plan - Assessment and Plan (Free Text) Assessment: 57M with recurrent right inguinal hernia Plan: - Follow up in office outpatient for elective repair Further recs discuss with Dr. Elysia Monae, PGY3
--- NOTE | 2018-06-26 10:44 | CP.PCM.PN ---
Subjective - Date & Time of Evaluation Date of Evaluation: 06/26/18 Time of Evaluation: 10:43 - Subjective Subjective: Patient awake and conscious out of bed feeling good No complaint reported Objective - Vital Signs/Intake and Output Vital Signs (last 24 hours): Temp Pulse Resp BP Pulse Ox 98.1 F 60 20 122/72 100 06/26/18 08:22 06/26/18 08:22 06/26/18 08:22 06/26/18 08:22 06/26/18 08:22 Intake and Output: 06/26/18 06/26/18 06:59 18:59 Intake Total 400 Balance 400 - Medications Medications: Current Medications Al Hydrox/Mg Hydrox/Simethicone (Maalox 30 Ml) 30 ml PO TID PRN PRN Reason: Indigestion / Heartburn Amlodipine Besylate (Norvasc) 10 mg PO DAILY [facility] Last Admin: 06/26/18 10:05 Dose: 10 mg Clonidine HCl (Catapres) 0.1 mg PO Q4 PRN PRN Reason: COWS Score More or Equal to 5 Famotidine (Pepcid) 20 mg PO DAILY [facility] Last Admin: 06/26/18 10:05 Dose: 20 mg Heparin Sodium (Porcine) (Heparin) 5,000 units SC Q12 [facility] Last Admin: 06/25/18 21:29 Dose: 5,000 units Sodium Chloride (Sodium Chloride 0.9%) 1,000 mls @ 100 mls/hr IV .Q10H [facility] Stop: 06/26/18 23:59 Last Admin: 06/26/18 08:08 Dose: Not Given Ibuprofen (Motrin Tab) 400 mg PO QID PRN PRN Reason: Pain, moderate (4-7) Last Admin: 06/25/18 19:16 Dose: 400 mg Lisinopril (Zestril) 10 mg PO DAILY [facility] Last Admin: 06/26/18 10:05 Dose: 10 mg Loperamide HCl (Imodium) 2 mg PO Q8 PRN PRN Reason: Diarrhea Lorazepam (Ativan) 0.25 mg IVP Q6H PRN PRN Reason: Anxiety Methadone HCl (Methadone) 10 mg PO Q24H [facility]; Taper Stop: 06/28/18 09:59 Last Admin: 06/26/18 10:06 Dose: 10 mg Nicotine (Nicoderm Cq) 1 patch TD DAILY [facility] Last Admin: 06/26/18 10:07 Dose: Not Given Ondansetron HCl (Zofran Tab) 4 mg PO Q8 PRN PRN Reason: Nausea/Vomiting Pseudoephedrine HCl (Sudafed Tab) 60 mg PO QID PRN PRN Reason: Nasal/Sinus Congestion - Labs Labs: 06/26/18 07:06 06/26/18 07:06 - Constitutional Appears: No Acute Distress - Eye Exam Eye Exam: Conjunctival injection - ENT Exam ENT Exam: Mucous Membranes Moist - Neck Exam Neck Exam: absent: Lymphadenopathy - Respiratory Exam Respiratory Exam: NORMAL BREATHING PATTERN. absent: Chest Wall Tenderness - Cardiovascular Exam Cardiovascular Exam: REGULAR RHYTHM. absent: Gallop, JVD, Rubs - GI/Abdominal Exam GI & Abdominal Exam: Soft, Normal Bowel Sounds - Extremities Exam Extremities Exam: absent: Calf Tenderness - Back Exam Back Exam: absent: CVA tenderness (L), CVA tenderness (R) - Neurological Exam Neurological Exam: Alert - Psychiatric Exam Psychiatric exam: Normal Affect - Skin Skin Exam: absent: Cyanosis Assessment and Plan (1) GUY (acute kidney injury) Assessment & Plan: Acute kidney injury recovering Opioid dependent Hypertension Hyperphosphatemia corrected Hyponatremia improving Plan DC IV fluid DC calcium acetate serum phosphorus corrected Patient recovered from acute kidney injury Myoglobin positive in the urine consistent with rhabdomyolysis Follow-up as needed thank you for this interesting case Status: Acute (2) History of DVT of lower extremity Status: Acute (3) Opiate dependence Status: Acute
--- NOTE | 2018-06-26 11:25 | PN ---
DATE: 06/24/2018 SUBJECTIVE: The patient was seen and examined at the bedside on 06/24/2018. Looking comfortable. No fever. No chills. No hematuria. No hematochezia. No headache. No dizziness. No chest pain. No palpitation. Urine output is good. PHYSICAL EXAMINATION: VITAL SIGNS: Temperature 98.4, pulse 73, respiratory rate 20, blood pressure 170/96, pulse oximetry 96%. HEENT: Head: Normocephalic and atraumatic. Eyes: PERRLA. Extraocular muscles intact. Conjunctivae clear. Nose patent. Mucous membranes moist. NECK: Supple. No carotid bruit. No JVD or thyromegaly. CHEST: Bilaterally symmetrical. HEART: S1 and S2 positive. LUNGS: Clear to auscultation. ABDOMEN: Soft. Bowel sounds present. No organomegaly. EXTREMITIES: No edema. No cyanosis. NEUROLOGICAL: The patient is awake and alert. Moving all four extremities. No focal deficits. MEDICATIONS: Norvasc, PhosLo, Pepcid, heparin, NS, Zestril, Ativan, Nicoderm, Zofran. LABORATORY DATA: White blood cell 9.9, hemoglobin 16.2, hematocrit 48.8, platelets 543. Sodium 135, potassium 4, BUN 23, creatinine 1, glucose 133. ASSESSMENT AND PLAN: Mr. Franco Thacker is a 57-year-old male with leukocytosis, renal insufficiency improving, hyperglycemia, hypochloremia, came with acute kidney injury probably secondary to rhabdomyolysis and from drug overdose, perhaps opioid dependency, hypertension, hyperphosphatemia, history of hypernatremia. The patient recovered from acute kidney injury. Serum creatinine is coming down. Electrolyte normalizing. We will repeat labs. Psych is on the case for detoxification. Seen by Dr. Salter, vegetable inspector, manager department. Gastrointestinal and deep venous thrombosis prophylaxis. We will follow up. Aide Berger MD MTDAnna
[2018-06-26 17:08] VITALS: BP 118/67; PULSE 62; TEMP 97.8; O2SAT 97
--- NOTE | 2018-06-27 12:13 | CARD ---
APPROVED REPORT Date of service: 06/22/2018 EKG Measurement Heart [id number] TN [id number] <Conclusion> Normal sinus rhythm Possible Left atrial enlargement Borderline ECG
== END 2018-06-26 18:36 | disposition home or self-care (01) | DRG 744 ==
LOC: C.ER 13:46 → C.3T 19:16
PROVIDERS: ADMIT Internal Medicine; ATTEND Internal Medicine
DX: F11.23 Opioid dependence with withdrawal (principal); M62.82 Rhabdomyolysis; N17.0 Acute kidney failure with tubular necrosis; E87.1 Hypo-osmolality and hyponatremia; E87.8 Other disorders of electrolyte and fluid balance, not elsewhere classified; F14.20 Cocaine dependence, uncomplicated; D72.829 Elevated white blood cell count, unspecified; E83.39 Other disorders of phosphorus metabolism; F17.210 Nicotine dependence, cigarettes, uncomplicated; I10 Essential (primary) hypertension; K40.91 Unilateral inguinal hernia, without obstruction or gangrene, recurrent; T40.1X1A Poisoning by heroin, accidental (unintentional), initial encounter; Z23 Encounter for immunization; Z86.718 Personal history of other venous thrombosis and embolism